=== PATIENT | female | born 1970 | race Caucasian/White ===

== ENCOUNTER 2017-01-22 08:58 | Day surgery (SDC) | payer OTHER ==
[~2017-01-22] VITALS: Ht 170.2 cm; Wt 66.2 kg
[2017-01-22] VITALS (7 sets, daily range): BP systolic 110–130; BP diastolic 56–76; PULSE 56–81; RESP 10–17; O2SAT 96–100
[~2017-01-22 08:58] MED LIST: CITA10TA9 PO; Lactated Ringer's 1,000 ML IV ONE; MULT-1018 PO; Mirena INTRAUTERI
[2017-01-22] MEDS ORDERED: Dexamethasone 4 mg/mL Inj ONE (08:59)
[2017-01-22] MEDS ORDERED: Propofol 10,000 mCg/mL 20 mL Inj ONE (08:59)
[2017-01-22] MEDS ORDERED: fentaNYL-PF 50 mCg/mL 2 mL Inj ONE (08:59)
[2017-01-22] MEDS ORDERED: Ondansetron 2 mg/mL 2 mL Inj ONE (08:59)
[2017-01-22] MEDS ORDERED: Lactated Ringer's 1,000 ML IV ONE (09:20)
[2017-01-22] MEDS ORDERED: Lactated Ringer's 1,000 ML IV SCH (09:39)
[2017-01-22] MEDS ORDERED: Lactated Ringer's 500 ML IV PRN (09:39)
--- NOTE | 2017-01-22 09:39 | PCM.HPANE ---
Patient Data Date of Service: Jan 22, 2017 (0935) Surgeon Admitting Provider: Attending Provider:Deborah Bang MD Primary Care Physician:Kelly Gibson Other Provider:Jackson Easley Anesthesia Reason for Visit Left Breast Cancer Ht/WT & BMI Height (Feet): 5 Height (Inches): 7.00 Weight (Kilograms): 66.2 Body Mass Index 22.00 Allergies Coded Allergies: No Known Allergies (Unverified , 01/05/17) Past Anesthesia History Anesthesia History: Denies:: Abnormal Airway, Anesthesia Reactions, Difficult Intubation, Fam Anesthesia Reaction Diabetes History Hx Diabetes?: No MRSA MRSA: No Medications Hypertension Medication: No Home Meds Incl Beta Pooja: No Reported Medications Multivitamin (Multi Vitamin Daily)1 Each Tablet1 Each PO DAILY Ref 0 01/05/17 [Mirena] No Conflict Check20 Mcg INTRAUTERI DAILY 20mcg/24hrs 12/15/16 Citalopram 10 Mg [id number] Mg PO DAILY Ref 0 12/15/16 History HEENT History: Denies:: Abnormal Airway Cataracts Difficult Intubation Dysphagia Glaucoma Hearing Problem Sinus Problem TMJ Hx of Heart Problems?: Yes Cardiovascular History: Denies:: AICD Abdominal Aortic Aneurism Atrial Fibrillation Cardiac Surgery Chest Pain Edema Heart Murmur Hypertension Irregular Heartbeat Pacemaker Peripheral Vascular Hx of Respiratory Problem?: No Respiratory History: Denies:: Asthma COPD Emphysema Oxygen Administration Pneumonia Tuberculosis Use of C-PAP Machine Use of Inhalers / NEBS Hx Neurologic Problems?: No Neurological History: Denies:: CVA Dementia Dizziness Headaches Multiple Sclerosis Parkinson's Disease Seizures TIA Hx of GI Problems?: No Gastrointestinal History: Denies:: Cirrhosis Gall Bladder Disease Gastroesphageal Reflux Gastrointestinal Bleeding Heartburn Hepatitis Hiatal Hernia Liver Disease Hx of Problems?: No Genitourinary History: Denies:: Kidney Stones Urinary Tract Infection Female Hx: Positive for:: Problems with Breasts? (left breast current admission problem) Denies:: Currently (neg) Skin History: Denies:: History Skin Disorders? Pressure Ulcers Hx Musculoskeletal Problems?: Yes Musculoskeletal History: Positive for:: Musculoskeletal Trauma (prior ACL repair- knee) Denies:: Back Injury Fibromyalgia Joint Replacement Osteoarthritis Rheumatoid Arthritis Systemic Lupus Hx of Psycho/Social Problems?: Yes Psycho Social History: Positive for:: Anxiety Hx Depression Hx Surgeries?: Yes (MCL/ACL left knee (2002)) Hx Any Other Health Problems?: Yes Other History: Positive for:: Cancer (left breast current admission problem) Denies:: Thyroid Disease History Blood Transfusions: Positive for:: Accept Blood Products? Denies:: Blood Transfusions Hx Diabetes: No Hx Alcohol Use: YesAlcoholic Drinks Per Day: 3-5 weeklyHx Substance Use: No Smoking Status: Current Every Day Smoker Have You Smoked inLast 12 mo: Yes Stop/Bang S-Snoring: Do You Snore Loudly: No T-Tired: feel tired, fatigued: No O-Obsered: Observed not breath: No P-Blood Pressure: treated: No B- Body Mass Index > 35 kg/m2: No A- Age over 50: No N- Neck Large Circumference: No G- Gender Male: No HAKAN Total Score: 0 HAKAN Risk Assessment: Low Risk, <3 Yes Risk Assessment Category Category 1A: Patient has history of documented sleep apnea, and HAS NOT received any narcotic, sedative or anesthesia administration during this stay. Category 1B: Patient has history of documented sleep apnea, and HAS received any narcotic , sedative or anesthesia administration during this stay Category 2: Patient has SUSPECTED Obstructive Sleep Apnea, and HAS received any narcotic , sedative or anesthesia administration during this stay. Category 3: Patient has SUSPECTED Obstructive Sleep Apnea and HAS NOT received narcotic, sedative or anesthesia administration during this stay. Category 4: Outpatient in Procedural Areas with known sleep apnea or who screen positive for High Risk via the STOP/BANG questionnaire. Exam Exam Vital Signs Vital Signs Date Time Temp Pulse Resp B/P Pulse Ox O2 Delivery O2 Flow Rate FiO2 01/22/17 09:22 35.4 56 17 112/56 100 Room Air General Appearance: Alert, Oriented X3, Cooperative Lungs: Clear to Auscultation Heart: Exam Unremarkable Meds/Labs/Diagnostics Admission Meds Current Medications Lactated Ringer's (Lr) 1,000 ml @ ud STK-MED ONCE IV Last administered on 01/22t 09:20; Start 01/22/17 at 09:20; Stop 01/22/17 at 09:21; Status DC Plan Impression Patient chart reviewed, patient interviewed and anesthestic plan with risks, benefits, and alternatives discussed, and informed consent obtained. NPO Status: 01/21@1999 ASA Physical Status: ASA1 Normal Healthy Anesthetic Plan: GA Bene/Risks/Altern/Consents: Yes HP Complete Prior to Induction: Yes Sha Pendleton MD Jan 22, 2017 09:39
[2017-01-22] MEDS ORDERED: Phenylephrine 10,000 mCg/mL Inj IVPUSH PRN (09:40)
[2017-01-22] MEDS ORDERED: Dexamethasone 4 mg/mL Inj IVPUSH PRN (09:40)
[2017-01-22] MEDS ORDERED: Ondansetron 2 mg/mL 2 mL Inj IVPUSH PRN (09:40)
[2017-01-22] MEDS ORDERED: MetoCLOpramide 5 mg/mL 2 mL Inj IVPUSH PRN (09:40)
[2017-01-22] MEDS ORDERED: HYDROmorphone 1 mg/mL Inj IVPUSH PRN (09:40)
[2017-01-22] MEDS ORDERED: EPHEDrine Sulfate 50 mg/mL Inj IVPUSH PRN (09:40)
[2017-01-22] MEDS ORDERED: Bupivacaine-MPF 0.5% 30 mL Inj INFILTRATE ONE (10:30)
--- NOTE | 2017-01-22 10:47 | DRSVH ---
PROCEDURE: NM SENTINEL NODE INJECTION ONLY, LEFT BREAST RADIOPHARMACEUTICAL: 0.6 mCi Millipore filtered Tc-99m sulfur colloid. INDICATIONS: LEFT BREAST CANCER SENTINEL NODE INJECTION. PROCEDURE: The indications, alternatives, benefits, risks, and complications of the procedure were explained to the patient. Written informed consent was obtained and placed in the chart. The area around the nip ple was prepped and draped in a sterile fashion. Tc-99m sulfur colloid was injected in the outer edg e of the areola in the left breast. No image was obtained. IMPRESSION: Administration of radiotracer into the left breast periareolar region for intra-operativ e sentinel lymph node localization. Dictated by: Hector Renteria M.D. on 01/22/2017 at 10:45 Approved by: Hector Renteria M.D. on 01/22/2017 at 10:45
--- NOTE | 2017-01-22 12:03 | PCM.SURGPO ---
Immediate Operative Note Date of Surgery: Jan 22, 2017 Pre Operative Diagnosis Left Breast Cancer Post Operative Diagnosis Left Breast Cancer Procedure Wire localized left partial mastectomy, Left Axillary sentinel lymph node biopsy Surgeon and Loom Setter Surgeon: Deborah Bang MD Assistants: Gurvinder Garcia, Shiela Jaramillo MS3 Findings Clip seen on specimen radiograph, Additional medial & Superior margins taken Complications There were no periprocedural complications identified. Surgical Specimen Removed: Yes Specimen sent to Pathology: Yes Anesthetic Administered: GA Grafts, Implants: None Output, Estimated Blood Loss: 2 Blood Admin during surgery: No Attending Statement Fist Loom Setter listed was medically necessary for the successful completion of the case Deborah Bang MD Jan 22, 2017 12:03
[2017-01-22] MEDS ORDERED: OXYC5TAB72 PO (12:04)
--- NOTE | 2017-01-22 12:20 | PCM.ANEP1 ---
Post Anesthesia Phase 1 PACU Phase 1 Assessment Date of Service: Jan 22, 2017 Vital Signs 125/76, 98%, 36.2, 86, 16 Vital Signs Date Time Temp Pulse Resp B/P Pulse Ox O2 Delivery O2 Flow Rate FiO2 01/22/17 09:22 35.4 56 17 112/56 100 Room Air Anesthetic Administered: GA Level of Alertness: Awake, talking FERRER's with Equal Strength: Yes Pain: No Nausea or Vomiting: No Oxygen Delivery: Room Air Lungs: Clear to Auscultation Dermatome Level: Full Sensation Summary uneventful GA Sha Pendleton MD Jan 22, 2017 12:20
--- NOTE | 2017-01-22 12:20 | PCM.ANEP2 ---
Post Anesthesia Evaluation ASA/CMS Post Anesthesia VS in Patient's Normal Range?: Yes Resp Stable; Airway Patent?: Yes CV Function & Hydration Stable: Yes Mental Status Recovered?: Yes Pain control Satisfactory?: Yes N/V Control Satisfactory?: Yes Sha Pendleton MD Jan 22, 2017 12:20
[2017-01-22] MEDS: fentaNYL-PF 50 mCg/mL 2 mL Inj IVPUSH PRN ×2 (12:33→12:36)
--- NOTE | 2017-01-22 23:58 | OP ---
[address] [address] OPERATIVE REPORT PATIENT: WAYNE MENDEZ : 1970 MR#: [id number] ADMIT: 01/22/2017 JOB ID: [id number] DATE OF SURGERY: 01/22/2017 PREOPERATIVE DIAGNOSIS(ES): Left breast cancer. POSTOPERATIVE DIAGNOSIS(ES): Left breast cancer. PROCEDURE PERFORMED: Wire localized left partial mastectomy and left axillary sentinel lymph node biopsy. SURGEON: Deborah Bang MD. ASSEMBLY RIVETER: 1. Gurvinder Garcia PA-C. 2. Shiela Jaramillo MS3. ESTIMATED BLOOD LOSS: 5 mL. COMPLICATIONS: None. INDICATIONS: The patient is a 47-year-old lady who was diagnosed with left breast cancer based on screening mammogram. Screening mammogram showed indistinct calcifications in the left breast at 12 o'clock middle depth. Additional views showed a 7 mm irregular mass with spiculated margin. She then had an ultrasound and ultrasound-guided biopsy which showed invasive ductal carcinoma, Snowflake score 4/9, ER positive, RI positive, HER2 negative. Breast MRI did not reveal any other abnormalities. After discussing the risks, benefits and alternatives, she was brought to the operating room for a wire localized left partial mastectomy and sentinel lymph node biopsy. PROCEDURE DETAILS: She was placed in supine position, underwent smooth induction of general anesthesia, and upon my discussion with Dr. Messina we realized that the lesion is actually in the mid point of the wire as opposed to at the tip. So, I proceeded to make an incision in the periareolar orientation at the upper-outer aspect of the nipple. I then raised skin flap and delivered the wire into the field and then dissected the breast tissue circumferentially to get down to the chest wall around the wire. I did visualize the distal part of the wire, but given this was beyond the area of the clip and the tumor I decided to remove the wire and got a specimen radiograph. The specimen radiograph showed the wire to be well centered within the specimen. Just to make sure, I took additional superior and medial margins and marked them with stitches. After that, I directed my attention to the axilla and made an incision where the maximum activity was seen with Gamma Counter. But upon initial exploration I did not notice any lymph nodes there and I realized was probably getting scatter from the breast injection site. I then injected 1 mL of methylene blue in the subareolar region and massaged it, and upon further exploration I was able to get gamma count up to 200 higher in the axilla. I was also able to palpate node. Then, with combination of blunt and sharp dissection, I identified this lymph node, dissected it and removed it, and was able to get ex vivo count of 200. There was additional lymph node around this area where I thought there was tracer activity and I resected them, but ex vivo I did not notice any further activity. After this, the background count in the axilla was 15 or less, and after ensuring good hemostasis, we closed both the breast and axillary incisions with 3-0 Vicryl, followed by 4-0 Monocryl. Dermabond was applied as a dressing. Patient was recovered from anesthesia and was taken to the recovery room in stable condition. YOLA
--- NOTE | 2017-01-23 07:21 | DRSVH ---
SPECIMEN LEFT BREAST: 01/22/2017 CLINICAL: Breast specimen. Correlation is made to exams dated: 01/22/2017 mammogram, 01/01/2017 ultrasound - Breast [facility], 12/25/2016 breast MRI - [facility], 11/15/2016 mammogram, 11/24/2016 mammogram, and 7 ultrasound biopsy - [facility]. A surgical specimen was imaged for the previous biopsy site located in the left breast at 1 o'clock anterior depth. IMPRESSION: SPECIMEN The imaged specimen includes a biopsy clip and the distal portion of the localization wire. This exam was interpreted at Station ID: [id number]. Juliana Messina M.D. lk/:01/22/2017 12:52:40 copy to: ARJUN MCQUEEN Additional referring physicians: KRZYSZTOF NI, ARJUN RINCON
--- NOTE | 2017-01-24 11:24 | PATH ---
SURGICAL PATHOLOGY Attending Physician:Deborah Bang MD CASE STATUS: Signed Out PATIENT NAME: WAYNE MENDEZ PID: [id number] : 1970 DATE COLLECTED:01/22/2017 00:00 SPECIMEN: 1: Breast Mass, Excision (Wire Localization) 2: Breast Margin 3: Breast Margin 4: Wendel Lymph Node 5: Lymph Node, Biopsy CLINICAL HISTORY: LEFT BREAST CANCER 1). WIRE LOCALIZED LEFT PARTIAL MASTECTOMY UPPER OUTER QUADRANT 2). ADDITIONAL SUPERIOR MARGIN 3). NEW MEDIAL MARGIN 4). LEFT AXILLARY SENTINEL NODE #1 5). NON-SENTINEL LYMPH NODE #1 FINAL DIAGNOSIS: 1.LEFT BREAST PARTIAL MASTECTOMY: INVASIVE CARCINOMA (SEE CAP CANCER CASE SUMMARY BELOW). CAP CANCER CASE SUMMARY INVASIVE CARCINOMA OF THE BREAST: PROCEDURE: WIRE LOCALIZED PARTIAL MASTECTOMY (EXCISIONAL SPECIMEN) LYMPH NODE SAMPLING: SENTINEL LYMPH NODE AND NONSENTINEL LYMPH NODES. SPECIMEN LATERALITY: LEFT TUMOR SITE: 12 O' CLOCK TUMOR SIZE: 1.3 x 0.9 x 0.7 CM HISTOLOGIC TYPE: INFILTRATING DUCTAL CARCINOMA HISTOLOGIC GRADE: SARAH HISTOLOGIC SCORE 4 OF 9 Glandular/Tubular differentiation: Score 1 of 3 Nuclear Pleomorphism: Score 2 of 3 Mitotic Rate: Score 1 of 3 Overall Grade: Grade 1 of 3 (LOW GRADE) TUMOR FOCALITY: SINGLE FOCUS DUCTAL CARCINOMA IN SITU: Size (Extent) of DCIS: FEW MICROSCOPIC FOCI Architectural patterns: CRIBRIFORM AND PAPILLARY Nuclear grade: Grade INTERMEDIATE (2 of3) Necrosis: ABSENT MARGINS INVASIVE CARCINOMA: Anterior: 1.5 CM Posterior: 1.0 CM Superior: LESS THAN 0.1 CM Inferior: 3.1 CM Medial: LESS THAN 0.1 CM Lateral: 0.5 CM DUCTAL CARCINOMA IN SITU: ALL MARGINS GREATER THAN 1.0 CM LYMPH NODES Total number of lymph nodes examined: 9 Number of sentinel lymph nodes examined: 1 Lymph Node Involvement: ALL LYMPH NODES NEGATIVE FOR TUMOR Method of Evaluation of Wendel Lymph Nodes: HISTOLOGIC SERIAL SECTIONS LYMPH-VASCULAR INVASION: NOT IDENTIFIED PATHOLOGIC STAGING: AJCC, 7th ed., 2010 PRIMARY TUMOR: pT1c REGIONAL LYMPH NODES: pN0 ANCILLARY STUDIES: Biomarkers Performed Previously on Case: (SEE [id number]) Estrogen Receptor (ER) Status: POSITIVE Progesterone Receptor (PgR) Status: POSITIVE HER2 (by immunohistochemistry): NEGATIVE 2.ADDITIONAL SUPERIOR MARGIN: BENIGN BREAST TISSUE WITH NO EVIDENCE OF TUMOR OR ATYPIA. 3.NEW MEDIAL MARGIN: BENIGN BREAST TISSUE WITH NO EVIDENCE OF TUMOR OR ATYPIA. 4.LEFT AXILLARY SENTINEL LYMPH NODE: ONE LYMPH NODE NEGATIVE FOR MALIGNANCY. 5.NONSENTINEL LYMPH NODES: 8 LYMPH NODES, ALL NEGATIVE FOR MALIGNANCY. ICD10 CODE C50.112 GROSS DESCRIPTION: The specimens are received in formalin, labeled with the patient's name, and sublabeled as the following: (1) wire localized left partial mastectomy upper outer quadrant, short: superior, long: lateral; (2) additional superior margin, short: superior, long: lateral; (3) new medial margin, short: superior, long: new margin; (4) left axillary sentinel lymph node #1; (5) non-sentinel lymph node #1. (1) The specimen consists of a piece of breast tissue (3.5 cm AP, 4.5 cm SI, 3.2 cm ML) with no overlying skin oriented with 2 black sutures (short-superior, long-lateral). A localization wire is present. The specimen is serially sectioned SI into 20 slices with the superior and inferior resection margins slides #1 and #20 respectively. The breast tissue is fatty and contains a akins white solid firm irregular mass (1.3 x 0.9 x 0.7 cm) within slices #2-#6, which coincides with the operative report. The mass is 1.5 cm from the anterior, 1.0 cm from the posterior, less than 0.1 cm from the superior, 3.1 cm from the inferior, less than 0.1 cm from the medial, and 0.5 cm from the lateral resection margins. No other nodules masses or lesions are identified. Ink code: purple-anterior; yellow-posterior; black-superior; orange-inferior; green-medial; blue-lateral. Section code: (1A) superior resection margin, perpendicularly sectioned, entirely submitted; (1B) slice #2, entirely submitted; (1C) slice #3, entirely submitted; (1D) slice #4, entirely submitted; (1E-1F) slice #5, bisected and submitted AP, entirely submitted; (1G) slice #6, entirely submitted; (1H-1I) slice #7, tissue adjacent to mass, bisected and submitted AP, entirely submitted; (1J) slice #15, patient admitting representative; (1K) inferior resection margin, perpendicularly sectioned, patient admitting representative. (2) The specimen consists of a piece of breast tissue (1.7 cm AP, 0.6 cm SI, 2.8 cm ML) with no overlying skin oriented with 2 black sutures (short-superior, long-lateral). No localization wire is present. The breast tissue is fatty with no nodules, masses or lesions identified. Ink code: purple-anterior; yellow-posterior; black-superior; orange-inferior; green-medial; blue-lateral. Section code: (2A-2C) breast tissue, serially sectioned and submitted ML. Specimen entirely submitted. (3) The specimen consists of a piece of breast tissue (3.6 cm AP, 2.5 cm SI, 0.6 cm ML) with no overlying skin oriented with 2 black sutures (short-superior, long-new margin). No localization wire is present. The breast tissue is fibrofatty with no nodules, masses or lesions identified. Ink code: purple-anterior; yellow-posterior; black-superior; orange-inferior; green-medial; blue-lateral. Section code: (3A-3C) breast tissue, serially sectioned and submitted AP. Specimen entirely submitted. (4) The specimen consists of a lymph node (1.0 x 0.8 x 0.5 cm). Section code: (4A) one lymph node, serially sectioned. Specimen entirely submitted. (5) The specimen consists of multiple pieces of adipose tissue (3.5 x 2.8 x 0.7 cm in aggregate) contain multiple possible lymph nodes (0.2 x 0.2 x 0.2 cm-1.5 x 0.9 x 0.5 cm). Section code: (5A) multiple an intact lymph node; (5B) one lymph node, serially sectioned. Note: Approximate total fixation time in formalin for all specimens-31 hours and 30 minutes calculated using a collection date of January 22, 2017 with times in fixative of 1410-0403. 01/23/17 JM MICRO DESCRIPTION: See diagnosis. ICD-9 CODES: CPT CODES: 1: 57156 2: 61756 3: 06869 4: 93362 5: 08632 PROCEDURE/ADDENDA: Addendum SPI Addendum Diagnosis TEST: Oncotype DX Breast Recurrence Score Recurrence Score Result: 15 ER Score: 7.8 Positive [place] Score: 8.1 Positive HER2 Score: 9.6 Negative Addendum Comment Please see [facility] Report [id number] for complete details. Testing and Interpretation by [facility], [place], [place]. Testing requested by Dr. Gibson, [facility]. Electronically Signed Out Federico Rivera MD Electronically Signed Out Federico Rivera MD [facility] Pathology [facility] [address], [place] [address] Technical component performed at [facility], [facility] [address], [place], [address]
[2017-04-24] MEDS ORDERED: TAMO20TA4 PO (15:12)
== END 2017-01-22 23:59 | disposition home or self-care (01) ==
LOC: SAS 08:58
PROVIDERS: ATTEND Student in an Organized Health Care Education/Training Program
DX: C50.412 Malignant neoplasm of upper-outer quadrant of left female breast (principal); F32.9 Major depressive disorder, single episode, unspecified; F41.9 Anxiety disorder, unspecified; Z87.891 Personal history of nicotine dependence; Z80.3 Family history of malignant neoplasm of breast; Z17.0 Estrogen receptor positive status [ER+]
CPT/HCPCS: 19301; 38525; 38792; 76098; A9541; J0690; J1100; J1885; J2250; J2405; J3010; J7120